=== PATIENT | female | born 1975 | race Caucasian/White ===

== ENCOUNTER → 2021-02-28 | Outpatient (CLI) | payer BC ==
[~2021-02-28] MED LIST: FLOMAX 0.40.4 MG/CAP PO; LO LOESTRIN FE1 TAB PO; NORCO 325 MG-51 TAB PO; OMNICEF 300MG300 MG PO; PERCOCET 325 MG1 TA2 PO; SYNTHROID0.075 MG/T PO; ZOFRAN ODT4 MG PO
== END ==
LOC: MC.RAD 10:22
DX: Z12.31 Encounter for screening mammogram for malignant neoplasm of breast (principal)

== ENCOUNTER → 2021-05-17 | Outpatient (CLI) | payer BC | LOC: COL.RAD 11:31 | DX: N20.2 Calculus of kidney with calculus of ureter (principal) ==

== ENCOUNTER 2021-05-24 10:33 | Emergency (ER) | payer BC ==
[~2021-05-24] VITALS: Ht 160 cm; Wt 109.1 kg
[~2021-05-24 10:33] MED LIST changes: -LO LOESTRIN FE1 TAB PO; -OMNICEF 300MG300 MG PO; -PERCOCET 325 MG1 TA2 PO; -SYNTHROID0.075 MG/T PO
[2021-05-24 10:40] VITALS: TEMP 98.6
[2021-05-24 10:59] LABS: COLLECTION METHOD CLEAN CATCH
[2021-05-24 11:11] LABS: ALBUMIN 4.1 gm/dL (3.5-5.0); BILIRUBIN,TOTAL 0.4 mg/dL (0.2-1.2); C-REACTIVE PROTEIN 1.8 mg/dL (0.00-0.50); CALCIUM 9.5 mg/dL (8.4-10.2); CREATININE, serum 0.85 mg/dL (0.57-1.11); POTASSIUM 4.5 mmol/L (3.5-4.5); TOTAL PROTEIN 7.7 gm/dL (6.2-8.1)
[2021-05-24 11:44] LABS: MUCOUS Present (NOT PRESENT); PH 6 (5-8); URINE APPEARANCE Cloudy (CLEAR/HAZY); URINE BACTERIA None Seen (NONE SEEN); URINE BILIRUBIN Negative (NEGATIVE); URINE BLOOD 3+ (NEGATIVE); URINE COLOR Amber (YELLOW); URINE GLUCOSE Negative (NEGATIVE); URINE KETONE Trace (NEGATIVE); URINE LEUKOCYTE ESTERASE Negative (NEGATIVE); URINE NITRATE Negative (NEGATIVE); URINE PROTEIN(semi-quant) 2+ (NEGATIVE); URINE RBC >50 /hpf (0-2); URINE UROBILINOGEN Negative (NEGATIVE)
[2021-05-24] MEDS ORDERED: OMNICEF 300MG300 MG PO (12:05)
[2021-05-24] MEDS ORDERED: PERCOCET 325 MG1 TA2 PO (12:05)
[2021-05-24 12:19] VITALS: BP 151/86; PULSE 81
[2021-05-24 12:26] LABS: BASO % 0.4 % (0.0-2.0); GRAN # 6.8 K/mm3 (1.4-6.5); GRAN % 76.3 % (42.2-75.2); HEMATOCRIT 34.3 % (37.0-47.0); HEMOGLOBIN 11.9 g/dl (12.5-16.0); LYMPH # 1.7 K/mm3 (1.2-3.4); LYMPH % 18.6 % (20.0-51.0); MEAN CELL VOLUME 85 fl (80.0-100.0); MEAN CORPUSCULAR HEMOGLOBIN 29 pg (27.0-31.0); MEAN CORPUSCULAR HGB CONC 35 g/dl (33.0-37.0); MEAN PLATELET VOLUME 9.3 fl (7.4-10.4); MONO # 0.4 K/mm3 (0.1-0.6); MONO % 4.3 % (1.7-9.3); PLATELET COUNT 261 K/mm3 (130-400); RED BLOOD COUNT 4.05 M/mm3 (4.10-5.30); REDCELL DISTRIBUTION WIDTH-CV 13.1 % (11.5-14.5)
[2021-05-25] MEDS ORDERED: SYNTHROID0.075 MG/T PO (11:45)
[2021-05-25] MEDS ORDERED: OMNICEF 300MG300 MG PO (11:48)
[2021-05-25] MEDS ORDERED: LO LOESTRIN FE1 TAB PO (11:49)
== END 2021-05-24 12:26 | disposition home or self-care (01) ==
LOC: COL.ER 10:33
PROVIDERS: Family Medicine
DX: N13.2 Hydronephrosis with renal and ureteral calculous obstruction (principal)
CPT/HCPCS: J1885; J2270; J2405; J7120; Q9967

== ENCOUNTER 2021-05-25 11:18 | Day surgery (SDC) | payer BC ==
[~2021-05-25] VITALS: Ht 160 cm; Wt 114.1 kg
[~2021-05-25 11:18] MED LIST changes: +OMNICEF 300MG300 MG PO; +PERCOCET 325 MG1 TA2 PO
--- NOTE | 2021-05-25 11:39 | NUR ---
PATIENT AMBULATED INTO SDC UNIT WITH STEADY GAIT. NO FAMILY WITH PATIENT. PATIENT STATES TO CALL HE IS AT HOME WITH CHILD. ORDERS RECEIVED. CONSENT EXPLAINED AND PATIENT SIGNED. ASSESSMENT COMPELTED. LUNGS CTA, HEART SOUNDS S1,S2 AND REGULAR. BOWEL SOUNDS HYPO. PEDAL PULSES +1. CALL LIGHT EXPLAINED AND PATIENT VOICED UNDERSTANDING. IV STARTED TO LEFT AC WITH NS INFUSING.
[2021-05-25] MEDS ORDERED: SYNTHROID0.075 MG/T PO (11:45)
[2021-05-25] MEDS ORDERED: OMNICEF 300MG300 MG PO (11:48)
[2021-05-25] MEDS ORDERED: LO LOESTRIN FE1 TAB PO (11:49)
[2021-05-25 13:20] VITALS: BP 239/81; PULSE 82; TEMP 98.3
--- NOTE | 2021-05-25 15:09 | NUR ---
Patient ambulated to the BR to void. IV was disconnected and reconnected. Patient stated having a headache, lights dimmed and fluids continued. RN did not administer PRN morphine for a headache.
--- NOTE | 2021-05-25 16:12 | NUR ---
patient was taken back to the OR by WALE Wilkerson.
[2021-05-25 17:20] VITALS: BP 136/81; PULSE 90; TEMP 97.4
--- NOTE | 2021-05-25 17:20 | NUR ---
Patient arrived on cart from PACU, escorted by Tara ECHEVARRIA. Vitals obtained. Patient requested assistance using the bathroom. RN x2 assisted with ambulating to bathroom and patient was able to successfully void. Patient is currently drinking a sprite and expressed desire to be discharged.
[2021-05-25 17:35] VITALS: BP 143/84; PULSE 89
--- NOTE | 2021-05-25 17:36 | NUR ---
Vitals obtained. Patient requested a warm muffin to eat and is tolerating it well. Call vasquez is at bedside. Side rails x2.
[2021-05-25 17:50] VITALS: BP 142/84; PULSE 82
--- NOTE | 2021-05-25 17:50 | NUR ---
Vitals obtained. IV discontinued due to discharge. Catheter tip intact. Pressure bandage applied. Patient is currently changing and the patients is at the ER entrence to drive her home. Patient stated she did not need any assistance changing.
--- NOTE | 2021-05-25 18:10 | NUR ---
Patient was escorted out to ED entrence via wheelchair by Pauline ECHEVARRIA. Patient has her personal belongings, educational material and discharge information; along with equipment SEE DISCHARGE ASSESSMENT. Patient verbalized understanding of discharge instructions and educational material, and signed the related paperwork. Patient stated no further questions or concerns. Patient was transferred into the care of Jonny, her at this time who is present to drive. Patient asked for an emisis bag "just in case", however denies n/v.
== END 2021-05-25 18:10 | disposition home or self-care (01) ==
LOC: SDCO 11:18
DX: N20.1 Calculus of ureter (principal); I10 Essential (primary) hypertension; E03.9 Hypothyroidism, unspecified; Z79.890 Hormone replacement therapy; Z79.899 Other long term (current) drug therapy
CPT/HCPCS: C1769; C2617; J0690; J1100; J1885; J1940; J2405; J2704; J3010; J7030; Q9967

== ENCOUNTER 2021-05-27 10:40 | Emergency (ER) | payer BC ==
[~2021-05-27] VITALS: Ht 160 cm; Wt 113.6 kg
[~2021-05-27 10:40] MED LIST changes: +LO LOESTRIN FE1 TAB PO; +SYNTHROID0.075 MG/T PO
[2021-05-27 10:48] VITALS: TEMP 97.6
[2021-05-27 11:18] LABS: BASO # 0.1 K/mm3 (0.0-0.2); BASO % 0.6 % (0.0-2.0); GRAN # 7.6 K/mm3 (1.4-6.5); GRAN % 63.1 % (42.2-75.2); HEMOGLOBIN 12.3 g/dl (12.5-16.0); LYMPH # 3.7 K/mm3 (1.2-3.4); LYMPH % 30.7 % (20.0-51.0); MEAN CELL VOLUME 84 fl (80.0-100.0); MEAN CORPUSCULAR HEMOGLOBIN 30 pg (27.0-31.0); MEAN CORPUSCULAR HGB CONC 35 g/dl (33.0-37.0); MEAN PLATELET VOLUME 8.8 fl (7.4-10.4); MONO # 0.6 K/mm3 (0.1-0.6); MONO % 5.2 % (1.7-9.3); PLATELET COUNT 280 K/mm3 (130-400); RED BLOOD COUNT 4.16 M/mm3 (4.10-5.30); REDCELL DISTRIBUTION WIDTH-CV 13.2 % (11.5-14.5)
[2021-05-27 11:27] LABS: HEMATOCRIT 35.1 % (37.0-47.0)
[2021-05-27 11:36] LABS: CALCIUM 8.6 mg/dL (8.4-10.2); CREATININE, serum 0.96 mg/dL (0.57-1.11); POTASSIUM 3.9 mmol/L (3.5-4.5)
[2021-05-27 11:39] LABS: COLLECTION METHOD CLEAN CATCH
[2021-05-27 11:50] LABS: PH 6 (5-8); SQUAMOUS EPITHELIAL None Seen /hpf (0-10); URINE APPEARANCE Cloudy (CLEAR/HAZY); URINE BACTERIA None Seen (NONE SEEN); URINE BILIRUBIN Negative (NEGATIVE); URINE BLOOD 3+ (NEGATIVE); URINE COLOR Amber (YELLOW); URINE GLUCOSE 1+ (NEGATIVE); URINE KETONE Trace (NEGATIVE); URINE LEUKOCYTE ESTERASE Negative (NEGATIVE); URINE NITRATE Negative (NEGATIVE); URINE PROTEIN(semi-quant) 2+ (NEGATIVE); URINE RBC >50 /hpf (0-2); URINE UROBILINOGEN Negative (NEGATIVE)
[2021-05-27] MEDS ORDERED: PERCOCET 325 MG1 TA2 PO (12:30)
[2021-05-27 13:05] VITALS: BP 152/80; PULSE 77
== END 2021-05-27 13:05 | disposition home or self-care (01) ==
LOC: COL.ER 10:40
PROVIDERS: Emergency Medicine
DX: R10.9 Unspecified abdominal pain (principal); R11.2 Nausea with vomiting, unspecified; D72.829 Elevated white blood cell count, unspecified; Z87.442 Personal history of urinary calculi; Z98.890 Other specified postprocedural states
CPT/HCPCS: J1170; J2405; J7030

== ENCOUNTER 2021-06-17 05:11 | Day surgery (SDC) | payer BC ==
[~2021-06-17] VITALS: Ht 160 cm; Wt 112.3 kg
[2021-06-17] VITALS (11 sets, daily range): BP systolic 104–142; BP diastolic 59–80; PULSE 80–103; TEMP 97.4–98.6
[2021-06-17] MEDS ORDERED: EUTHYROX175 MCG PO (05:52)
[2021-06-17] MEDS ORDERED: NORVASC2.5 MG PO (05:53)
[2021-06-17] MEDS ORDERED: COLACE 100100 MG/CAP PO (05:54)
[2021-06-17] MEDS ORDERED: MOTRIN 800800 MG/TAB PO (06:08)
[2021-06-17] MEDS ORDERED: PERCOCET 325 MG1 TA2 PO (06:09)
--- NOTE | 2021-06-17 09:50 | NUR ---
The patient arrived back to [facility] from the recovery room and will be held in the outpatient area until a room is open on the 3rd floor for her post operatively. The patient has oxygen in place at 2L per nasal cannula. Post operative vital signs were started at this time. Incisions appear without redness or edema at this time. The patient states she is "sleepy" and denies wanting to try anything to eat or drink at this time. Call light is within reach. Will continue to monitor the patient.
--- NOTE | 2021-06-17 10:10 | NUR ---
The patient appears to be resting comfortably on the cart at this time. Vital signs appear stable. Call light remains within reach. She denies wanting anything to eat or drink at this time. Will continue to monitor the patient.
--- NOTE | 2021-06-17 10:25 | NUR ---
The patient appears more alert and agrees to try some ice water at this time. Vital signs appear to be stable. The patient reports feeling the urge to void and the nurse educated her regarding the floyd catheter she has in place. Call light remains within reach. Will continue to monitor the patient.
--- NOTE | 2021-06-17 10:35 | NUR ---
The patient appears to be tolerating the water well. The patient denies wanting anythingn further to eat or drink. Will continue to monitor the patient.
--- NOTE | 2021-06-17 11:05 | NUR ---
The patient appears to be tolerating the water well and agrees to try some saltine crackers at this time. The patient's vital signs appear stable. Call light remains within reach. The patient was given her cellphone from the backpack. Will continue to monitor the patient.
--- NOTE | 2021-06-17 11:35 | NUR ---
The patient has tried a couple saltine crackers and appeared to tolerate them well. The patient continues to report minimal pain at this time. Will continue to monitor the patient.
--- NOTE | 2021-06-17 12:29 | NUR ---
The patient was weaned to room air and appears to be tolerating it well. The patient was given some fresh ice water at this time. She continues to report minimal pain or nausea at this time. Call light remains within reach. Will continue to monitor the patient.
--- NOTE | 2021-06-17 12:35 | NUR ---
Nurse spoke bela Avalos, RN/Charge nurse on 3rd surgical regarding the patient's transfer to their floor post operatively. She stated to call back in 30 min to give report. The nurse verbalized understanding and stated she would call back between [phone] to give report.
--- NOTE | 2021-06-17 13:16 | NUR ---
The patient has finished her post operative vital signs and was disconnected from the dynamap at this time. The patient's IV was placed to INT'd as she is eating and drinking without difficulty.
--- NOTE | 2021-06-17 13:22 | NUR ---
Report was called to WALE Avalos who will be assuming care of the patient on the 3rd floor post operatively. She verbalized understanding of report and has no questions for the nurse at this time. The patient will be transferred up to room 327.
--- NOTE | 2021-06-17 13:53 | NUR ---
Patient to room 327 post op robotic hysterectomy. Patient remained in pre-op through post op period awaiting bed placement. Alert and oriented, answers questions appropriately. See assessment.
--- NOTE | 2021-06-17 22:24 | NUR ---
Patient assessed around 194. Alert and oriented x 4, and able to make needs known. Reported some pain to abdomen, and given scheduled Motrin. Encouraged to call if she needed PRN pain medication, and voiced understanding. Peripheral IV to left hand with IV fluids running per orders. Lab sites x 4 to abdomen. Open to area, no redness, warmth, swelling, or drainage noted. Indwelling floyd catheter patent, with clear yellow urine. Education provided on post-op restrictions and lap site care. Voices no further questions, needs, or concerns at this time. In bed with call light within reach.
[2021-06-18 00:16] VITALS: BP 120/70; PULSE 97; TEMP 98.2
[2021-06-18 04:31] VITALS: BP 119/72; PULSE 90; TEMP 98.4
--- NOTE | 2021-06-18 06:05 | NUR ---
Patient has denied having pain and discomfort this shift, except on final rounds. Requested PRN Roxicodone with Motrin this morning. Given per orders. Patient is passing gas. Resting in bed with call light within reach. IV fluids continues per orders.
--- NOTE | 2021-06-18 07:43 | NUR ---
BEDSIDE REPORT RECIEVED FROM ERIN ECHEVARRIA PT DENIES ANY NEEDS AT THIS TIME
[2021-06-18] MEDS ORDERED: MOTRIN 800800 MG/TAB PO (07:54)
[2021-06-18 08:01] VITALS: BP 134/70; PULSE 90; TEMP 98.3
--- NOTE | 2021-06-18 11:10 | NUR ---
PT DISCHARGE HOME PER ORDERS D/C INSTRUCTIONS, MEDICATIONS AND FOLLOW UP REVIWED WITH PT.QUESTIONS AND CONCERNS ADDRESSED. PT ESCORTED BY PCT TO ER EXIT.ALL PERSONAL BELONINGS SEND WITH PT
--- NOTE | 2021-06-18 13:49 | NUR ---
tree worker met with patient to discuss discharge plan. Patient reports that she lives at home with her Jonny ([id number]) in [place]. Patient states that she is fully independent with her activitied of daily living and does not utilize any DME to assist with mobility. Patient reports to no oxygen needs. PCP is and she utilizes [facility] for medications with no cost difficulty. Patient does not have a DPOA-HC currently and is not interested in one at this time. Education provided to the patient to which she still declines. Discharge plan: Home
== END 2021-06-18 11:12 | disposition home or self-care (01) ==
LOC: SDCO 05:11 → SURG 13:53 → SDCO 06-18 11:12
PROVIDERS: Obstetrics & Gynecology
DX: N92.0 Excessive and frequent menstruation with regular cycle (principal); N80.0 Endometriosis of uterus; D25.1 Intramural leiomyoma of uterus; N83.202 Unspecified ovarian cyst, left side; I10 Essential (primary) hypertension; K21.9 Gastro-esophageal reflux disease without esophagitis; G43.909 Migraine, unspecified, not intractable, without status migrainosus; E03.9 Hypothyroidism, unspecified; E66.01 Morbid (severe) obesity due to excess calories; K59.00 Constipation, unspecified; Z79.899 Other long term (current) drug therapy; Z79.890 Hormone replacement therapy; Z68.41 Body mass index [BMI] 40.0-44.9, adult
CPT/HCPCS: OP; A4314; J0690; J1100; J1170; J1885; J2405; J2704; J2710; J3010; J7120

== ENCOUNTER 2021-11-01 20:28 | Emergency (ER) | payer BC ==
[~2021-11-01] VITALS: Ht 160 cm; Wt 106.8 kg
[~2021-11-01 20:28] MED LIST changes: +COLACE 100100 MG/CAP PO; +EUTHYROX175 MCG PO; +MOTRIN 800800 MG/TAB PO; +NORVASC2.5 MG PO
[2021-11-01 22:51] LABS: BASO % 0.3 % (0.0-2.0); GRAN # 7.8 K/mm3 (1.4-6.5); GRAN % 74.7 % (42.2-75.2); HEMATOCRIT 37.6 % (37.0-47.0); LYMPH # 2.1 K/mm3 (1.2-3.4); LYMPH % 20.1 % (20.0-51.0); MEAN CELL VOLUME 81 fl (80.0-100.0); MEAN CORPUSCULAR HEMOGLOBIN 28 pg (27-31); MEAN CORPUSCULAR HGB CONC 35 g/dl (33.0-37.0); MEAN PLATELET VOLUME 9.5 fl (7.4-10.4); MONO # 0.5 K/mm3 (0.1-0.6); MONO % 4.6 % (1.7-9.3); PLATELET COUNT 285 K/mm3 (130-400); RED BLOOD COUNT 4.64 M/mm3 (4.10-5.30); REDCELL DISTRIBUTION WIDTH-CV 13.7 % (11.5-14.5)
[2021-11-01 23:08] LABS: ALBUMIN 4.2 gm/dL (3.5-5.0); BILIRUBIN,TOTAL 0.4 mg/dL (0.2-1.2); CALCIUM 9.3 mg/dL (8.4-10.2); CREATININE, serum 0.76 mg/dL (0.57-1.11); POTASSIUM 4.4 mmol/L (3.5-4.5); TOTAL PROTEIN 7.4 gm/dL (6.2-8.1)
[2021-11-01] MEDS ORDERED: PEPCID 20MG TAB20 MG PO (23:16)
[2021-11-01 23:35] VITALS: BP 131/83; PULSE 69; TEMP 98
== END 2021-11-01 23:36 | disposition home or self-care (01) ==
LOC: COL.ER 20:28
PROVIDERS: Emergency Medicine
DX: R10.13 Epigastric pain (principal); R11.10 Vomiting, unspecified
CPT/HCPCS: J7120

== ENCOUNTER → 2023-09-11 | Outpatient (CLI) | payer BC ==
[~2023-09-11] MED LIST changes: +PEPCID 20MG TAB20 MG PO
== END ==
LOC: MC.RAD 11:16
DX: Z12.31 Encounter for screening mammogram for malignant neoplasm of breast (principal)